=== PATIENT | male | born 1960 ===

== ENCOUNTER 2021-06-09 05:50 | Inpatient (IN) ==
[~2021-06-09 05:50] MED LIST: Buffered Lidocaine 1% SYRIN 1 ml INTRADERM ONE; DiMENhydriNATE IV 50 mg/ml 1 ml VIAL IV PUSH ONE; HYDROcodone/ACETAMIN 5/325 mg TAB PO PRN; Metoclopramide 5 MG/ML VIAL (10 mg) IV PRN; Naloxone 0.4 mg VIAL 0.4 mg/ml 1 ml VIAL IV PRN; Ondansetron 4 mg VIAL 2 MG/ML 2 ml VIAL IV PRN
[2021-06-09] MEDS ORDERED: ceFAZolin 2 GM in NS PREMIX 2 GM/100 ML BAG IVPB ONE (06:23)
[2021-06-09] MEDS ORDERED: DiMENhydriNATE IV 50 mg/ml 1 ml VIAL ONE (06:23)
[2021-06-09] MEDS ORDERED: Propofol 10 MG/ML 20 ML BTL ONE (06:43)
[2021-06-09] MEDS ORDERED: Lidocaine 2% PF 5 ML VIAL ONE (06:44)
[2021-06-09] MEDS ORDERED: Midazolam 2 mg/2 ml VIAL 1 mg/ml 2 ml VIAL (2 mg) ONE (06:45)
[2021-06-09] MEDS ORDERED: fentaNYL 250 mcg/5 ml 50 MCG/ML 5 ml VIAL (250 MCG) ONE (06:45)
[2021-06-09] MEDS ORDERED: Rocuronium 50 mg VIAL 10 mg/ml 5 ml VIAL (50 mg) ONE ×2 (06:45→09:45)
[2021-06-09] MEDS: Lactated Ringers 1000 ml BAG 1,000 ML IV SCH ×2 (06:52→15:58)
[2021-06-09] MEDS ORDERED: ceFAZolin VIAL VIAL ONE ×3 (07:10→12:29)
[2021-06-09] MEDS ORDERED: Bupivacaine 0.25% SDV 30 ML ONE (07:10)
[2021-06-09] MEDS ORDERED: Ketamine HCL 50 mg/ml 10 ml VIAL (500 MG) ONE (08:18)
[2021-06-09] MEDS ORDERED: Phenylephrine 40 mcg/mL 10mL (400mcg) SYRINGE ONE ×2 (08:27→09:19)
[2021-06-09] MEDS ORDERED: Ondansetron 4 mg VIAL 2 MG/ML 2 ml VIAL ONE (08:28)
[2021-06-09] MEDS ORDERED: Dexamethasone IV 4 MG/ML VIAL 1 ml VIAL ONE (08:28)
[2021-06-09] MEDS ORDERED: Phenylephrine IV 10 MG/ML 1 ml VIAL ONE ×2 (09:38→11:35)
[2021-06-09] MEDS ORDERED: fentaNYL 100 mcg/2 ml 50 MCG/ML VIAL ONE ×2 (12:09→13:13)
[2021-06-09] MEDS ORDERED: Ondansetron 4 mg VIAL 2 MG/ML 2 ml VIAL IV PRN (12:47)
[2021-06-09] MEDS ORDERED: Magnesium Hydroxide LIQ 30 ML UDC PO PRN (12:47)
[2021-06-09] MEDS ORDERED: HYDROcodone/ACETAMIN 5/325 mg TAB ONE (13:13)
[2021-06-09] MEDS: fentaNYL 100 mcg/2 ml 50 MCG/ML VIAL IV PRN ×4 (13:14→13:24)
[2021-06-09] MEDS ORDERED: HYDROmorphone 0.5 MG/0.5 ML SYRINGE IV ONE (23:45)
[2021-06-10 05:56] LABS: ABS Lymphocytes 1.1 10^3/ul (1.0-4.8); ABS Monocytes 0.9 10^3/ul (0-0.8); ABS Neutrophils 9.6 10^3/ul (1.5-7.7); Hematocrit 34 % (42-52); Hemoglobin 11.4 g/dL (14.0-18.0); Lymphocyte % 9.7 %; Mean Corpuscular HGB Conc 33 g/dL (31-36); Mean Corpuscular Hemoglobin 31 pg (27-31); Mean Corpuscular Volume 92 fL (80-94); Mean Platelet Volume 7.3 fL (7.4-10.4); Platelet Count 192 10^3/uL (150-450); Red Blood Count 3.73 10^6 /uL (4.18-5.48); Red Cell Distribution Width 14 % (10-15); White Blood Count 11.6 10^3/uL (3.5-10.8)
[2021-06-10 06:13] LABS: Calcium 8.9 mg/dL (8.6-10.3); EGFR Non-African American 50.4 (>60); Potassium 4.2 mmol/L (3.5-5.0)
[2021-06-10] MEDS ORDERED: Flu vaccine *QUAD* 2021-22* 0.5 ML SYRINGE IM ONE (09:00)
[2021-06-10] MEDS ORDERED: oxyCODONE SR 20 mg TAB PO ONE (11:32)
[2021-06-10] MEDS: oxyCODONE SR 20 mg TAB PO SCH (21:06)
[2021-06-11] MEDS: oxyCODONE SR 20 mg TAB PO SCH ×2 (09:02→22:08)
[2021-06-12] MEDS: oxyCODONE SR 20 mg TAB PO SCH ×2 (09:00→20:30)
[2021-06-12] MEDS ORDERED: Gadoteridol (CONTRAST) 279.3 MG/ML 10 ML IV ONE (16:11)
[2021-06-13] MEDS: oxyCODONE SR 20 mg TAB PO SCH ×2 (09:24→17:17)
[2021-06-13 09:51] LABS: Calcium 9.4 mg/dL (8.6-10.3); EGFR African American 69.4 (>60); EGFR Non-African American 57.3 (>60); Potassium 3.8 mmol/L (3.5-5.0)
[2021-06-13] MEDS ORDERED: oxyCODONE SR 20 mg TAB PO SCH (14:00)
[2021-06-14] MEDS: oxyCODONE SR 20 mg TAB PO SCH ×3 (00:55→17:30)
[2021-06-14 19:09] VITALS: BP 133/68
== END 2021-06-14 19:35 | disposition home or self-care (01) | DRG 519 ==
LOC: OR 05:50 → SSU 05:50
PROVIDERS: ADMIT Neurological Surgery; ATTEND Neurological Surgery